=== PATIENT | male | born 1985 | race Caucasian/White ===

== ENCOUNTER 2022-10-08 16:02 | Outpatient (CLI) | payer SELFPAY | END 2022-10-08 16:03 | disposition home or self-care (01) | PROVIDERS: PCP Emergency Medicine; Visit Provider Emergency Medicine | DX: R77.9 Abnormality of plasma protein, unspecified (principal); R73.03 Prediabetes; E66.8 Other obesity | CPT/HCPCS: 82040; 84155 ==

== ENCOUNTER 2023-11-10 15:45 | Outpatient (CLI) | payer BC, SELFPAY | END 2023-11-10 15:46 | disposition home or self-care (01) | LOC: NFLDREF 11-12 10:24 | PROVIDERS: PCP Emergency Medicine; Referring Provider Emergency Medicine; Visit Provider Emergency Medicine | DX: R77.9 Abnormality of plasma protein, unspecified (principal); R73.03 Prediabetes; E66.8 Other obesity | CPT/HCPCS: 80048; 80076 ==

== ENCOUNTER 2024-02-26 08:35 | Outpatient (CLI) | payer BC, SELFPAY | END 2024-02-26 08:36 | disposition home or self-care (01) | LOC: NFLDREF 02-27 19:02 | PROVIDERS: PCP Emergency Medicine; Visit Provider Emergency Medicine | DX: Z13.6 Encounter for screening for cardiovascular disorders (principal) | CPT/HCPCS: 80061 ==

== ENCOUNTER 2024-11-29 13:30 | Outpatient (CLI) | payer BC, SELFPAY | END 2024-11-29 13:31 | disposition home or self-care (01) | LOC: LKVREF 13:32 | PROVIDERS: PCP Family Medicine; Visit Provider Family Medicine | DX: R73.03 Prediabetes (principal); E66.9 Obesity, unspecified | CPT/HCPCS: 80053 ==